=== PATIENT | male | born 1935 | race Hispanic/Latino ===

== ENCOUNTER 2018-02-02 09:59 | Emergency (ER) | payer MEDICARE, BC ==
[2018-02-02 10:05] VITALS: BMI 29.7
[2018-02-02] MEDS ORDERED: Sodium Chloride 0.9% 1,000 ML IV SCH (10:30)
--- NOTE | 2018-02-02 10:45 | CT ---
Date of service: 02/02/2018 PROCEDURE: CT HEAD WITHOUT CONTRAST. HISTORY: Code Stroke COMPARISON: 03/19/2014 TECHNIQUE: Axial computed tomography images were obtained through the head/brain without intravenous contrast. Radiation dose: Total exam DLP = 976.47 mGy-cm. This CT exam was performed using one or more of the following dose reduction techniques: Automated exposure control, adjustment of the mA and/or kV according to patient size, and/or use of iterative reconstruction technique. FINDINGS: HEMORRHAGE: No intracranial hemorrhage. 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 There is no mass, mass effect or abnormal extra-axial fluid collection. There is no territorial infarction. The midline sagittal structures are normal. VENTRICLES: There is moderate age-related global parenchymal volume loss and proportionate enlargement of the ventricles and cortical sulci. CALVARIUM: There is no calvarial fracture or extracranial soft tissue swelling. PARANASAL SINUSES: Predominantly clear. MASTOID AIR CELLS: Predominantly clear. OTHER FINDINGS: None. IMPRESSION: No acute intracranial abnormality. If there is a persistent focal neurologic deficit and an ongoing clinical concern for acute infarction, an MRI of the brain without intravenous contrast would be a more sensitive modality for evaluation of hyperacute/acute ischemic infarction. 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 Important findings were discussed with Dr. Kody Banda in the ER on 02/02/2018 at 10:40 a.m.
[2018-02-02 10:59] LABS: INR 1.04
[2018-02-02 11:01] LABS: HEMOGLOBIN 15.4 g/dL (14.0-18.0); MEAN CELL VOLUME 84.9 fl (80.0-105.0); MEAN CORPUSCULAR HEMOGLOBIN 29.7 pg (25.0-35.0); RBC 5.18 10^6/uL (3.5-6.1); RED CELL DISTRIBUTION WIDTH 13.6 % (11.5-14.5); WHITE BLOOD COUNT 6.5 10^3/uL (4.5-11.0)
[2018-02-02 11:02] LABS: BASO # 0.02 K/mm3 (0.0-2.0); BASO % 0.3 % (0.0-3.0); EOS # 0.2 (0.0-0.7); EOS % 2.3 % (1.5-5.0); GRAN # 3.7 (1.4-6.5); GRAN % 56.9 % (50.0-68.0); LYMPH % 31.3 % (22.0-35.0); MEAN PLATELET VOLUME 10.2 fl (7.0-11.0); MONO # 0.6 (0.1-0.6); MONO % 9.2 % (1.0-6.0)
--- NOTE | 2018-02-02 11:04 | RAD ---
Date of service: 02/02/2018 HISTORY: Code Stroke COMPARISON: 03/18/2014 FINDINGS: LUNGS: The lungs are well inflated and clear. PLEURA: No pleural effusions or pneumothorax. CARDIOVASCULAR: The heart is normal in size. Atherosclerotic aortic arch calcifications are present. OSSEOUS STRUCTURES: Within normal limits for the patient's age. VISUALIZED UPPER ABDOMEN: Normal. OTHER FINDINGS: None. IMPRESSION: No active pulmonary disease.
[2018-02-02 11:05] LABS: ALB/GLOB RATIO 1.3 (1.1-1.8); ALBUMIN 4.7 g/dL (3.0-4.8); ALT/SGPT 89 U/L (7-56); AST/SGOT 86 U/L (17-59); BLOOD UREA NITROGEN 20 mg/dL (7-21); CALCIUM 10.3 mg/dL (8.4-10.5); GFR NON-AFRICAN AMERICAN > 60; HDL CHOLESTEROL 47 mg/dL (29-60); LDL CHOLESTEROL 93 mg/dL (0-129)
--- NOTE | 2018-02-02 11:12 | ED PDOC ---
Arrival/HPI - General Chief Complaint: Weakness/Neurological Deficit Time Seen by Provider: 02/02/18 10:03 Historian: Patient, Spouse - History of Present Illness Narrative History of Present Illness (Text): 02/02/18 10:00 83 year old male whose past medical history includes TIA, Nephrolithiasis, and hernia, presents to the emergency department complaining of possible stroke s/p a near syncopal episode, an hour ago. Patient states he was leaving a restaurant, walking to his car when all of a sudden he felt dizzy, light headed, and he felt like his legs were going to give out. Patient is concerned that he had a stroke because of his prior history. As per spouse, his speech is slurred and his left sided facial droop returned, these symptoms had resolved from prior TIA. Patient now says he feels better, but is generally weak. Patient denies fever, chills, nausea, vomiting, neck pain, back pain, and or any other complai nt. PMD: Dr. Pierce Time/Duration: 1 hour Symptom Course: Improving Activities at Onset: Light Context: Walking Past Medical History - Provider Review Nursing Documentation Reviewed: Yes - Past Medical History Past Medical History: No Previous - Cardiac Hx Hypertension: Yes - Neurological Hx Neurological Disorder: Yes HX Cerebrovascular Accident: Yes - Renal Hx Kidney Stones: Yes - Musculoskeletal/Rheumatological Hx Falls: No - Psychiatric Hx Substance Use: No - Past Surgical History Past Surgical History: No Previous - Anesthesia Hx Anesthesia: Yes Hx Anesthesia Reactions: No - Suicidal Assessment Feels Threatened In Home Enviroment: No Family/Social History - Physician Review Nursing Documentation Reviewed: Yes Family/Social History: No Known Family HX Smoking Status: Never Smoked Hx Alcohol Use: No Hx Substance Use: No Hx Substance Use Treatment: No Allergies/Home Meds Allergies/Adverse Reactions: Allergies cephalexin Allergy (Verified 02/02/18 10:06) SWELLING Home Medications: Home Meds Medication Instructions Recorded Confirmed Atorvastatin Calcium [Lipitor] 20 mg PO HS 03/22/14 03/22/14 Enoxaparin [Lovenox] 40 mg SC DAILY 03/22/14 03/22/14 RX: Aspirin 325 mg PO DAILY 03/22/14 03/22/14 Review of Systems - Physician Review All systems were reviewed & negative as marked: Yes - Review of Systems Constitutional: Other (generalized weakness ). absent: Fevers Respiratory: absent: SOB, Cough Cardiovascular: absent: Chest Pain Gastrointestinal: absent: Diarrhea, Nausea, Vomiting Musculoskeletal: absent: Back Pain, Neck Pain Neurological: Dizziness, Speech Changes (slurred speech), Facial Droop, Other (light headed ) Physical Exam Vital Signs Reviewed: Yes Vital Signs Temp Pulse Resp BP Pulse Ox 02/02/18 10:06 97.5 F L 78 24 173/88 H 98 Temperature: Afebrile Blood Pressure: Hypertensive Pulse: Regular Respiratory Rate: Normal Appearance: Positive for: Well-Appearing, Non-Toxic, Comfortable Pain Distress: None Mental Status: Positive for: Alert and Oriented X 3 - Systems Exam Head: Present: Atraumatic, Normocephalic Pupils: Present: PERRL Extroacular Muscles: Present: EOMI Conjunctiva: Present: Normal Mouth: Present: Moist Mucous Membranes Neck: Present: Normal Range of Motion. No: Meningeal Signs Respiratory/Chest: Present: Clear to Auscultation, Good Air Exchange. No: Respiratory Distress, Accessory Muscle Use Cardiovascular: Present: Regular Rate and Rhythm, Normal S1, S2. No: Murmurs Abdomen: No: Tenderness, Distention, Peritoneal Signs Back: Present: Normal Inspection Upper Extremity: Present: Normal Inspection. No: Cyanosis, Edema Lower Extremity: Present: Normal Inspection. No: Edema Neurological: Present: GCS=15, CN II-XII Intact, Motor Func Grossly Intact (no weakness ), Normal Sensory Function, Other (left sided mild facial droop, NIH score of 2). No: Speech Normal (slurred speech) Skin: Present: Warm, Dry, Normal Color. No: Rashes Psychiatric: Present: Alert, Oriented x 3, Normal Insight, Normal Concentration Medical Decision Making ED Course and Treatment: 02/02/18 10:00 Impression: 83 year old male presents to the emergency department complaining of possible stroke s/p and near syncopal episode. NIHSS 2. No meningeal signs. Will seek imaging and labs- likely TIA. Pt noted to be MARCIA without major facial drop or any facial weakness. Plan: -- BBK -- Head CT w/o -- Labs -- Chest X-ray -- IV Fluids -- Reassess and disposition Prior Visits: Notes and results from previous visits were reviewed. Progress Notes: NIH score of 2. Head CT reviewed, shows: No acute infarct. no hemorrhage. old right sided infarct noted. 02/02/18 11:37 Official radiologist report of Head CT: IMPRESSION: No acute intracranial abnormality. If there is a persistent focal neurologic deficit and an ongoing clinical concern for acute infarction, an MRI of the brain without intravenous contrast would be a more sensitive modality for evaluation of hyperacute/acute ischemic infarction. 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 Important findings were discussed with Dr. Kody Banda in the ER on 02/02/2018 at 10:40 a.m. Chest X-ray reviewed, shows: IMPRESSION: No active pulmonary disease. 02/02/18 11:38 Appreciate consult w/ Dr. Rich: no indication for TPA at this time given low NIHSS, reccomends MRI And admission. EKG reviewed, shows: Sinus bradycardia at 55 bpm, no stemi. 1220: Pt notes major improvement after resting. Notes he has not been sleeping recently and that may be the reason he may have had near syncope. HE denies any slurred speech or facial droop. 02/02/18 12:50 PT aox3, good insight and capacity: seeking to sign out AMA: The patient is choosing to leave against medical advice. I have personally explained to the patient that choosing to do so may result in permanent bodily harm or . I have discussed at great length that without further evaluation and monitoring there may be unforeseen circumstances and/or deterioration causing permanent bodily harm or as a result of their choice. The patient is alert, oriented, and shows the mental capacity to make clear decisions regarding the patients health care at this time. The patient continues to wish to leave against medical advice. In light of the patients decision to leave against medical advice, follow-up has been arranged and the patient is aware of the importance to following up as instructed. The patient has been advised that they should return to the emergency room immediately if they change their mind at any time, or if their condition begins to change or worsen in any way. - Lab Interpretations Lab Results: 02/02/18 10:30 02/02/18 10:17 Lab Results 02/02/18 10:30: PT 12.0, INR 1.04, APTT 29.0 02/02/18 10:30: WBC 6.5, RBC 5.18, Hgb 15.4, Hct 44.0, MCV 84.9, MCH 29.7, MCHC 35.0, RDW 13.6, Plt Count 163, MPV 10.2, Gran % 56.9, Lymph % (Auto) 31.3, [place] % (Auto) 9.2 H, Eos % (Auto) 2.3, Baso % (Auto) 0.3, Gran # 3.70, Lymph # (Auto) 2.0, [place] # (Auto) 0.6, Eos # (Auto) 0.2, Baso # (Auto) 0.02 02/02/18 10:17: Sodium 142, Potassium Pending, Chloride 103, Carbon Dioxide 30, Anion Gap 13, BUN 20, Creatinine 1.0, Est GFR ( Amer) > 60, Est GFR (Non- Af Amer) > 60, Random Glucose 85, Calcium 10.3, Total Bilirubin 1.3, AST 86 H, ALT 89 H, Alkaline Phosphatase 62, Troponin I Pending, Total Protein 8.3, Albumin 4.7, Globulin 3.5, Albumin/Globulin Ratio 1.3, Triglycerides 154, Cholesterol 150, LDL Cholesterol Direct 93, HDL Cholesterol 47 - RAD Interpretation Radiology Orders: 02/02/18 10:17 HEAD W/O (CODE STROKE) [CT] Stat CHEST PORTABLE [RAD] Stat - Medication Orders Current Medication Orders: Sodium Chloride (Sodium Chloride 0.9%) 1,000 mls @ 100 mls/hr IV .Q10H JEFFREY - Scribe Statement The provider has reviewed the documentation as recorded by the Scribjaxon Tena Provider Scribe Attestation: All medical record entries made by the Scribjaxon were at my direction and personally dictated by me. I have reviewed the chart and agree that the record accurately reflects my personal performance of the history, physical exam, medical decision making, and the department course for this patient. I have also personally directed, reviewed, and agree with the discharge instructions and disposition. Disposition/Present on Arrival - Present on Arrival Any Indicators Present on Arrival: No History of DVT/PE: No History of Uncontrolled Diabetes: No Urinary Catheter: No History of Decub. Ulcer: No History Surgical Site Infection Following: None - Disposition Have Diagnosis and Disposition been Completed?: Yes Diagnosis: Transient ischemic attack (TIA) Disposition: AGAINST MEDICAL ADVICE Disposition Time: 12:53 Condition: GUARDED Discharge Instructions (ExitCare): Transient Ischemic Attack Additional Instructions: YOU HAVE DECIDED TO SIGN OUT AGAINST MEDICAL ADVICE. COME BACK IF YOU WANT TO BE TREATED AT ANY TIME. IT IS MY RECCOMENDATION YOU COME BACK SOON POSSIBLE [facility], thank you for letting us take care of you today. Your provider was Kody Banda and you were treated for Weakness. The emergency medical care you received today was directed at your acute symptoms. If you were prescribed any medication, please fill it and take as directed. It may take several days for your symptoms to resolve. Return to the Emergency Department if your symptoms worsen, do not improve, or if you have any other problems. Please contact your doctor or call one of the physicians/clinics you have been referred to that are listed on the Patient Visit Information form that is included in your discharge packet. Bring any paperwork you were given at discharge with you along with any medications you are taking to your follow up visit. Our treatment cannot replace ongoing medical care by a primary care provider outside of the emergency department. Thank you for allowing the [facility] team to be part of your care today. If you had an X-Ray or CT scan: A Radiologist will review the ED reading if any change in treatment is needed we will contact you. If you had a blood, urine, or wound culture: It will take several days for the results, if any change in treatment is needed we will contact you. If you had an STI test: It will take 48 hours for the results. Please call after 1 week if you have not heard back. Referrals: Faisal Rich MD [Staff Provider] - Follow up with primary Rickey Pierce MD [Family Provider] - Follow up with primary [facility] [place] [Outside] - Follow up with primary [facility] [Outside] - Follow up with primary Forms: [employer] (Japanese)
[2018-02-02 11:52] VITALS: PULSE 59
[2018-02-02 12:16] LABS: TROPONIN I < 0.01 ng/mL
[2018-02-02 13:06] VITALS: BP 133/74; RESP 19; TEMP 98; O2SAT 98
--- NOTE | 2018-02-02 18:44 | CARD ---
APPROVED REPORT Date of service: 02/02/2018 EKG Measurement Heart [id number] <Conclusion> Sinus bradycardia Moderate voltage criteria for LVH, may be normal variant Borderline ECG
== END 2018-02-02 13:07 | disposition left against medical advice (07) ==
LOC: ED 09:59
DX: G45.9 Transient cerebral ischemic attack, unspecified (principal); I10 Essential (primary) hypertension

== ENCOUNTER 2018-03-16 08:58 | Outpatient (CLI) | payer MEDICARE, BC | END 2018-03-16 08:59 | disposition home or self-care (01) | LOC: RAD 08:58 ==